=== PATIENT | female | born 1965 | race Caucasian/White ===

== ENCOUNTER 2016-12-02 13:17 | Emergency (ER) | payer SELFPAY ==
[2016-12-02] MEDS ORDERED: Sodium Chloride 0.9% 1,000 ML IV ONE (13:41)
--- NOTE | 2016-12-02 13:41 | C.PDOC ---
History Of Present Illness 51 year old patient, with a surgical history of appendectomy and cholecystectomy , presents to the ED complaining of vomiting and diarrhea since this morning. Patient also complains of associated body aches and periumbilical pain. She denies taking any medications for the pain. Patient denies shortness of breath, fever, or urinary symptoms. Time Seen by Provider: 12/02/16 13:23 Chief Complaint (Nursing): Abdominal Pain History Per: Patient, Family History/Exam Limitations: language barrier (translated by family) Onset/Duration Of Symptoms: Hrs (this morning) Current Symptoms Are (Timing): Still Present Context: Other Severity: Mild Pain Scale Rating Of: 3 Location Of Pain/Discomfort: Periumbilical Radiation Of Pain To:: None Quality Of Discomfort: "Pain" Associated Symptoms: Other (body aches) Exacerbating Factors: None Alleviating Factors: None Last Bowel Movement: Today Recent travel outside of the [place]: No Abnormal Vaginal Bleeding: No Past Medical History Reviewed: Historical Data, Nursing Documentation, Vital Signs Vital Signs: Last Vital Signs Temp 98 F 12/02/16 17:56 Pulse 85 12/02/16 17:56 Resp 18 12/02/16 17:56 BP 121/86 12/02/16 17:56 Pulse Ox 96 12/02/16 17:56 - Medical History PMH: Depression Surgical History: Appendectomy, Cholecystectomy Family History: States: Unknown Family Hx - Social History Hx Tobacco Use: No Hx Alcohol Use: No Hx Substance Use: No - Immunization History Hx Tetanus Toxoid Vaccination: No Hx Influenza Vaccination: No Hx Pneumococcal Vaccination: No Review Of Systems Except As Marked, All Systems Reviewed And Found Negative. Constitutional: Positive for: Other (body aches). Negative for: Fever Respiratory: Negative for: Shortness of Breath Gastrointestinal: Positive for: Vomiting, Abdominal Pain (periumbilical), Diarrhea Genitourinary: Negative for: Dysuria, Frequency, Incontinence Physical Exam - Physical Exam Appears: Non-toxic, No Acute Distress Skin: Warm, Dry Head: Atraumatic, Normacephalic Eye(s): bilateral: Normal Inspection, EOMI Nose: Normal Oral Mucosa: Moist Neck: Normal ROM, Supple Chest: Symmetrical Cardiovascular: Rhythm Regular Respiratory: Normal Breath Sounds, No Accessory Muscle Use, No Rales, No Rhonchi , No Wheezing Gastrointestinal/Abdominal: Soft, Tenderness (periumbilical), No Distention, No Guarding, No Rebound Back: No CVA Tenderness, No Vertebral Tenderness Extremity: Normal ROM Neurological/Psych: Oriented x3, Normal Speech, Normal Cognition Gait: Steady ED Course And Treatment - Laboratory Results Result Diagrams: 12/02/16 14:11 12/02/16 14:11 O2 Sat by Pulse Oximetry: 98 (RA) Pulse Ox Interpretation: Normal Progress Note: Plan: -Labs. -IV fluids, Toradol, Zofran. On re-evaluation pt notes pain improved. Tolerating PO. Afebrile. Case discussed with Dr Monroy who evaluated labs and radiology and agree dupon plan and treatment. Pt feels comfortable going home and will f/u outpt . Instructed to return to ER if symptoms persist or worsen. Disposition - Disposition Referrals: Anuradha Forrest APN [Advanced Practice Nurse] - Disposition: HOME/ ROUTINE Disposition Time: 17:44 Condition: STABLE Additional Instructions: Vaya a solis mdico o la clnica en 2-5 dee sin falta, para mas evaluacin. [place] los medicamentos ruiz indicado. Volver a la kaila de emergencia en cualquier momento si los sntomas persisten o empeoran. Prescriptions: Ciprofloxacin HCl [Cipro] 500 mg PO BID #14 tab Metronidazole [Flagyl] 500 mg PO BID #14 tab Ondansetron ODT [Zofran ODT] 1 odt PO BID PRN #6 odt PRN Reason: Nausea/Vomiting Instructions: Gastroenteritis (ED) Print Language: ARABIC - Clinical Impression Clinical Impression: Vomiting, Colitis, Diarrhea - PA / [employer] APPLICATION DEVELOPER / Resident Statement MD/DO has reviewed & agrees with the documentation as recorded. - Scribe Statement The provider has reviewed the documentation as recorded by the Scribe Priyanka Carmen All medical record entries made by the Scribe were at my direction and personally dictated by me. I have reviewed the chart and agree that the record accurately reflects my personal performance of the history, physical exam, medical decision making, and the department course for this patient. I have also personally directed, reviewed, and agree with the discharge instructions and disposition.
[2016-12-02] MEDS ORDERED: Sodium Chloride 0.9% 1,000 ML ONE (13:54)
[2016-12-02 14:18] LABS: BASO % 0.5 % (0.0-2.0); EOS % 0.1 % (0.0-4.0); HEMATOCRIT 44.1 % (34.0-47.0); MEAN CELL VOLUME 84.8 fL (81.0-99.0); MEAN CORPUSCULAR HGB CONC 34.2 g/dL (33.0-37.0); MEAN PLATELET VOLUME 8.1 fL (7.2-11.7); MONO # 0.5 K/uL (0.0-0.8); MONO % 5.6 % (0.0-10.0); RED CELL DISTRIBUTION WIDTH 13.2 % (11.5-14.5); WHITE BLOOD COUNT 9.8 K/uL (4.8-10.8)
[2016-12-02 14:26] LABS: RBC URINE 8 /hpf (0-3); URINE BILIRUBIN NEGATIVE (NEGATIVE); URINE BLOOD 1+ (NEGATIVE); URINE COLOR Yellow (YELLOW); URINE GLUCOSE (UA) NORMAL (Normal); URINE KETONE NEGATIVE (NEGATIVE); URINE LEUKOCYTE ESTERASE NEG Leu/uL (Negative); URINE PROTEIN NEGATIVE (NEGATIVE); URINE UROBILINOGEN NORMAL mg/dL (0.2-1.0); WBC URINE < 1 /hpf (0-5)
[2016-12-02 14:38] LABS: CHLORIDE 96 mmol/L (98-107); SODIUM 137 mmol/L (132-148)
[2016-12-02 14:40] LABS: GFR AFRICAN-AMERICAN > 60
[2016-12-02 14:41] LABS: ALB/GLOB RATIO 1.2 (1.0-2.1); ALKALINE PHOSPHATASE 107 U/L (38-126); ALT/SGPT 32 U/L (9-52); AST/SGOT 26 U/L (14-36); BILIRUBIN,TOTAL 0.7 mg/dL (0.2-1.3); BLOOD UREA NITROGEN 10 mg/dL (7-17); CALCIUM 9.3 mg/dl (8.6-10.4); CARBON DIOXIDE 25 mmol/L (22-30); GLUCOSE,RANDOM 93 mg/dL (65-105); TOTAL PROTEIN 8.5 g/dL (6.3-8.3)
[2016-12-02 15:43] VITALS: RESP 18
[2016-12-02] MEDS ORDERED: Iodixanol 320 MG/ML 100 ML BOTTLE IV ONE (16:16)
--- NOTE | 2016-12-02 17:07 | CT ---
PROCEDURE: CT Abdomen and Pelvis with intravenous contrast HISTORY: Abdominal pain COMPARISON: None. TECHNIQUE: Multiple contiguous axial images were performed through the abdomen and pelvis with the use of intravenous contrast. Subsequently, sagittal and coronal reformatted images were obtained. Radiation dose: Total exam DLP = eight hundred thirty-nine mGy-cm. This CT exam was performed using one or more of the following dose reduction techniques: Automated exposure control, adjustment of the mA and/or kV according to patient size, and/or use of iterative reconstruction technique. FINDINGS: LOWER THORAX: Atelectasis at the lung bases. LIVER: Mild fatty infiltration of the liver. GALLBLADDER AND BILE DUCTS: Prior cholecystectomy. PANCREAS: Heterogeneity at the head of the pancreas, nonspecific. SPLEEN: Preserved. Splenule. ADRENALS: Unremarkable. No mass. KIDNEYS AND URETERS: Few scattered sub centimeter hypodensities in both kidneys, too small to adequately characterize. Small cortical parenchymal defect at the upper pole of the right kidney, nonspecific. VASCULATURE: Unremarkable. No aortic aneurysm. BOWEL: Colonic diverticulosis. Underdistention and or mild thickening of the left hemicolon. Clinical correlation. APPENDIX: Not well identified. PERITONEUM: Unremarkable. No free fluid. No free air. LYMPH NODES: Unremarkable. No enlarged lymph nodes. BLADDER: Unremarkable. REPRODUCTIVE: Unremarkable. BONES: Degenerative changes in the spine. Grade 1 anterolisthesis of L4 on L5. OTHER FINDINGS: None. IMPRESSION: Colonic diverticulosis. Underdistention and or mild thickening of the left hemicolon. Clinical correlation. Additional findings as above.
[2016-12-02 17:59] VITALS: BP 121/86; PULSE 85; TEMP 98
[2016-12-02 18:43] VITALS: O2SAT 98
== END 2016-12-02 18:00 | disposition home or self-care (01) ==
LOC: C.ER 13:17
DX: K52.9 Noninfective gastroenteritis and colitis, unspecified (principal)
CPT/HCPCS: 74177; 80053; 81001; 83690; 84703; 85025; 87086; 87804; 96361; 96374; 96375; 99285; J1885; J2405; J7040; Q9967

== ENCOUNTER 2017-11-03 18:44 | Emergency (ER) | payer MEDICAID ==
[2017-11-03] MEDS ORDERED: Sodium Chloride 0.9% 1,000 ML IV ONE (19:40)
[2017-11-03 20:01] LABS: BASO % 0.4 % (0.0-2.0); EOS # 0.1 K/uL (0.0-0.7); EOS % 1.5 % (0.0-4.0); HEMOGLOBIN 14.1 g/dL (11.0-16.0); LYMPH % 34.3 % (20.0-40.0); MEAN CELL VOLUME 84.7 fL (81.0-99.0); MEAN CORPUSCULAR HEMOGLOBIN 29.7 pg (27.0-31.0); MEAN CORPUSCULAR HGB CONC 35.1 g/dL (33.0-37.0); MEAN PLATELET VOLUME 8.2 fL (7.2-11.7); MONO # 0.6 K/uL (0.0-0.8); MONO % 6.5 % (0.0-10.0); NEUT % 57.3 % (50.0-75.0); NRBC % 0.1 % (0.0-2.0); RBC 4.74 Mil/uL (3.80-5.20); RED CELL DISTRIBUTION WIDTH 13.2 % (11.5-14.5); WHITE BLOOD COUNT 8.7 K/uL (4.8-10.8)
[2017-11-03 20:08] LABS: HCG,QUALITATIVE URINE NEGATIVE (NEGATIVE)
[2017-11-03 20:09] LABS: SQUAMOUS EPITHIAL 1 /hpf (0-5); URINE BACTERIA RARE (<OCC); URINE BILIRUBIN NEGATIVE (NEGATIVE); URINE BLOOD NEGATIVE (NEGATIVE); URINE CLARITY Clear (Clear); URINE COLOR Colorless (YELLOW); URINE GLUCOSE (UA) NORMAL (Normal); URINE LEUKOCYTE ESTERASE NEG Leu/uL (Negative); URINE PROTEIN NEGATIVE (NEGATIVE); URINE UROBILINOGEN NORMAL mg/dL (0.2-1.0)
[2017-11-03 20:11] LABS: PROTHROMBIN TIME 11.1 SECONDS (9.7-12.2)
[2017-11-03 20:14] LABS: ALB/GLOB RATIO 1.1 (1.0-2.1); ALBUMIN 4.4 g/dL (3.5-5.0); ALT/SGPT 99 U/L (9-52); AST/SGOT 52 U/L (14-36); BLOOD UREA NITROGEN 20 mg/dL (7-17); CALCIUM 9.4 mg/dl (8.6-10.4); GFR AFRICAN-AMERICAN > 60; GFR NON-AFRICAN AMERICAN > 60; LIPASE 100 U/L (23-300)
--- NOTE | 2017-11-03 20:34 | C.PDOC ---
History Of Present Illness 52yo with history of diverticulosis, comes in with complaints of abdominal pain , worse in his left lower quadrant and suprapubic pain for the past 2 days. She also reports bright red blood per rectum but denies any hematemesis, fever, chills. She has no other medical complaints. Time Seen by Provider: 11/03/17 19:35 Chief Complaint (Nursing): Abdominal Pain History Per: Patient History/Exam Limitations: no limitations Onset/Duration Of Symptoms: Days (2) Current Symptoms Are (Timing): Still Present Location Of Pain/Discomfort: LLQ, Suprapubic Quality Of Discomfort: "Pain" Past Medical History Reviewed: Historical Data, Nursing Documentation, Vital Signs Vital Signs: Last Vital Signs Temp 98.3 F 11/03/17 18:54 Pulse 75 11/03/17 18:54 Resp 18 11/03/17 18:54 BP 105/67 11/03/17 18:54 Pulse Ox 98 11/03/17 22:47 - Medical History PMH: Depression, Gastritis, Hypercholesterolemia Surgical History: Appendectomy, Cholecystectomy Family History: States: Unknown Family Hx - Social History Hx Tobacco Use: No Hx Alcohol Use: No Hx Substance Use: No - Immunization History Hx Tetanus Toxoid Vaccination: No Hx Influenza Vaccination: No Hx Pneumococcal Vaccination: No Review Of Systems Except As Marked, All Systems Reviewed And Found Negative. Constitutional: Negative for: Fever, Chills Gastrointestinal: Positive for: Abdominal Pain, Hematochezia. Negative for: Hematemesis Physical Exam - Physical Exam Appears: Non-toxic Skin: Normal Color, Warm, Dry Head: Normacephalic Eye(s): bilateral: Normal Inspection Neck: Normal ROM, Supple Chest: Symmetrical Cardiovascular: Rhythm Regular Respiratory: Normal Breath Sounds Gastrointestinal/Abdominal: Soft, Tenderness (mild suprapubic and left lower quadrant tenderness.) Rectal: Heme Negative Extremity: Normal ROM Neurological/Psych: Oriented x3 ED Course And Treatment - Laboratory Results Result Diagrams: 11/03/17 19:55 11/03/17 19:55 O2 Sat by Pulse Oximetry: 98 (RA) Pulse Ox Interpretation: Normal Medical Decision Making Medical Decision Making: Impression: Abdominal pain r/o diverticultiis, gi bleed plan: -- CT Abdomen/Pelvis w/ IV Contrast -- Labs -- IV Fluids 1050: pt reassesed. states she had a episode of brbpr earlier today, but none right now, guiac neg. h/h stable. pain improved. pt is offered admission, however she declines and states she will return with worsening. IMPRESSION: - No evidence of significant acute process. No definite cause for pain identified Disposition - Disposition Referrals: Ramakrishna Allen MD [Staff Provider] - Disposition: HOME/ ROUTINE Disposition Time: 22:51 Condition: STABLE Additional Instructions: you are declining observation in the hospital. return to er with worsening symptoms or concerns. Instructions: Acute Abdomen (Belly Pain), Adult (DC), Gastrointestinal Bleeding , Diverticulosis Forms: [employer] (Bolivian) Print Language: WELSH - Clinical Impression Clinical Impression: Abdominal pain, GI bleed - Scribe Statement The provider has reviewed the documentation as recorded by the Scribe (Ama Polanco) Provider Attestation: All medical record entries made by the Scribe were at my direction and personally dictated by me. I have reviewed the chart and agree that the record accurately reflects my personal performance of the history, physical exam, medical decision making, and the department course for this patient. I have also personally directed, reviewed, and agree with the discharge instructions and disposition.
[2017-11-03] MEDS ORDERED: Iodixanol 320 MG/ML 100 ML BOTTLE IV ONE (20:57)
--- NOTE | 2017-11-03 22:46 | CT ---
EXAM: CT Abdomen and Pelvis With Intravenous Contrast EXAM DATE/TIME: 11/03/2017 7:40 PM CLINICAL HISTORY: 52 years old, female; Pain; Abdominal pain; Periumbilical; Additional info: Abd pain TECHNIQUE: Axial computed tomography images of the abdomen and pelvis with intravenous contrast. All CT scans at this facility use one or more dose reduction techniques, viz.: automated exposure control; ma/kV adjustment per patient size (including targeted exams where dose is matched to indication; i.e. head); or iterative reconstruction technique. Coronal and sagittal reformatted images were created and reviewed. CONTRAST: 100 mL of [id number] administered intravenously. COMPARISON: Prior abdominal ultrasound of 2015-12-01 FINDINGS: LIMITATIONS: Mild streak/motion artifact. LOWER THORAX: No infiltrate seen in the lung bases. ABDOMEN: LIVER: Fatty infiltration of the liver. Focal area of low density in the liver, abutting the falciform ligament, most compatible with focal fatty infiltration. GALLBLADDER AND BILE DUCTS: Cholecystectomy clips. PANCREAS: No CT evidence of acute pancreatitis. SPLEEN: No acute abnormality of the spleen identified. ADRENALS: No acute abnormality of the adrenal glands identified. KIDNEYS AND URETERS: Tiny, nonobstructing right renal stone. Low density lesions in the kidneys bilaterally, most likely representing cysts. The largest of these measures 11 mm. No acute abnormality of the kidneys identified. STOMACH AND BOWEL: Colonic diverticulosis, with no evidence of acute diverticulitis. Otherwise, no significant abnormality of the bowel is identified. No evidence of bowel obstruction. APPENDIX: Appendix is seen, and is within normal limits in appearance. PELVIS: BLADDER: No acute abnormality of the bladder identified. REPRODUCTIVE:No acute abnormality of the reproductive organs is seen. No acute abnormality of the uterus identified. No evidence of large adnexal masses. ABDOMEN and PELVIS: INTRAPERITONEAL SPACE: No evidence of free intraperitoneal air or fluid. BONES/JOINTS: No acute fractures or other acute bony abnormality noted. SOFT TISSUES: No acute abnormality of the visualized soft tissues is seen. VASCULATURE: No evidence of abdominal aortic aneurysm. No evidence of periaortic hemorrhage. LYMPH NODES: No evidence of diffuse lymphadenopathy. IMPRESSION: - No evidence of significant acute process. No definite cause for pain identified. - See above for remaining findings.
[2017-11-03 23:44] VITALS: BP 116/73; PULSE 69; RESP 20; TEMP 98.1; O2SAT 99
== END 2017-11-03 23:44 | disposition home or self-care (01) ==
LOC: C.ER 18:44
DX: K92.2 Gastrointestinal hemorrhage, unspecified (principal); R10.32 Left lower quadrant pain; E78.00 Pure hypercholesterolemia, unspecified
CPT/HCPCS: 74177; 80053; 81001; 83690; 84703; 85025; 85610; 85730; 86850; 86900; 99284; G0328; J7040; Q9967

== ENCOUNTER 2017-11-10 17:14 | Emergency (ER) | payer MEDICAID ==
[2017-11-10] MEDS ORDERED: Sodium Chloride 0.9% 1,000 ML IV ONE (17:48)
[2017-11-10] MEDS ORDERED: Aluminum Hydroxide/Magnesium Hydroxide Susp (30 mL) PO STA (17:48)
[2017-11-10] MEDS ORDERED: Belladonna-Phenobarbital PO STA (17:48)
--- NOTE | 2017-11-10 17:55 | C.PDOC ---
History Of Present Illness 52 yo female, hx of hplyori, presents with abdominal pain was seen in er last week, with gi bleed which resolved. states f/u up with gi, dx with hyployri, given triple meds. no fevers, no hememeisis, no bloody stool. Time Seen by Provider: 11/10/17 17:32 Chief Complaint (Nursing): GI Problem Past Medical History Reviewed: Historical Data, Nursing Documentation, Vital Signs Vital Signs: Last Vital Signs Temp 98.6 F 11/10/17 20:01 Pulse 69 11/10/17 20:01 Resp 18 11/10/17 20:01 BP 113/69 11/10/17 20:01 Pulse Ox 99 11/10/17 20:01 - Medical History PMH: Arthritis, Depression, Diverticulitis, Gastritis, Hypercholesterolemia Surgical History: Appendectomy, Cholecystectomy Family History: States: Unknown Family Hx - Social History Hx Tobacco Use: No Hx Alcohol Use: No Hx Substance Use: No - Immunization History Hx Tetanus Toxoid Vaccination: No Hx Influenza Vaccination: Yes Hx Pneumococcal Vaccination: No Review Of Systems Except As Marked, All Systems Reviewed And Found Negative. Gastrointestinal: Positive for: Nausea, Vomiting, Abdominal Pain Physical Exam - Physical Exam Appears: Well, No Acute Distress Skin: Normal Color, Warm, Dry Eye(s): bilateral: Normal Inspection, PERRL, EOMI Nose: Normal Throat: Normal Neck: Normal Cardiovascular: Rhythm Regular Respiratory: Normal Breath Sounds Gastrointestinal/Abdominal: Normal Exam, Soft, Tenderness (epgiastric), No Guarding, No Rebound Back: Normal Inspection Extremity: Normal ROM ED Course And Treatment - Laboratory Results Result Diagrams: 11/10/17 17:59 11/10/17 17:59 O2 Sat by Pulse Oximetry: 98 Disposition - Disposition Referrals: [facility] [Outside] [facility] [Outside] [facility]] Disposition: HOME/ ROUTINE Disposition Time: 08:00 Condition: STABLE Additional Instructions: return to er with worsening symptoms or concerns. Instructions: Acute Abdomen (Belly Pain) Forms: [employer] (Serbian) - Clinical Impression Clinical Impression: Abdominal pain
[2017-11-10] MEDS ORDERED: Belladonna-Phenobarbital ONE (18:00)
[2017-11-10] MEDS ORDERED: Aluminum Hydroxide/Magnesium Hydroxide Susp (30 mL) ONE (18:01)
[2017-11-10] MEDS ORDERED: Sodium Chloride 0.9% 1,000 ML ONE (18:01)
[2017-11-10 18:02] LABS: BASO % 0.4 % (0.0-2.0); EOS # 0.1 K/uL (0.0-0.7); EOS % 1.2 % (0.0-4.0); HEMOGLOBIN 13.2 g/dL (11.0-16.0); LYMPH # 2.1 K/uL (1.0-4.3); LYMPH % 25.5 % (20.0-40.0); MEAN CELL VOLUME 83.7 fL (81.0-99.0); MEAN CORPUSCULAR HEMOGLOBIN 29.1 pg (27.0-31.0); MEAN CORPUSCULAR HGB CONC 34.8 g/dL (33.0-37.0); MEAN PLATELET VOLUME 7.7 fL (7.2-11.7); MONO # 0.5 K/uL (0.0-0.8); MONO % 6.4 % (0.0-10.0); NEUT # 5.5 K/uL (1.8-7.0); NEUT % 66.5 % (50.0-75.0); NRBC % 0.1 % (0.0-2.0); RBC 4.52 Mil/uL (3.80-5.20); RED CELL DISTRIBUTION WIDTH 13.1 % (11.5-14.5); WHITE BLOOD COUNT 8.2 K/uL (4.8-10.8)
[2017-11-10 18:10] LABS: PROTHROMBIN TIME 10.7 SECONDS (9.7-12.2)
[2017-11-10 18:15] LABS: ALB/GLOB RATIO 1.1 (1.0-2.1); ALBUMIN 3.9 g/dL (3.5-5.0); ALT/SGPT 56 U/L (9-52); AST/SGOT 24 U/L (14-36); BLOOD UREA NITROGEN 16 mg/dL (7-17); CALCIUM 8.6 mg/dl (8.6-10.4); GFR AFRICAN-AMERICAN > 60; GFR NON-AFRICAN AMERICAN > 60; LIPASE 137 U/L (23-300)
[2017-11-10 19:25] LABS: SQUAMOUS EPITHIAL < 1 /hpf (0-5); URINE BILIRUBIN NEGATIVE (NEGATIVE); URINE BLOOD NEGATIVE (NEGATIVE); URINE CLARITY Clear (Clear); URINE COLOR Colorless (YELLOW); URINE GLUCOSE (UA) NORMAL (Normal); URINE LEUKOCYTE ESTERASE NEG Leu/uL (Negative); URINE PROTEIN NEGATIVE (NEGATIVE); URINE UROBILINOGEN NORMAL mg/dL (0.2-1.0)
[2017-11-10 19:26] LABS: HCG,QUALITATIVE URINE NEGATIVE (NEGATIVE)
[2017-11-10 20:01] VITALS: BP 113/69; PULSE 69; RESP 18; TEMP 98.6
[2017-11-10 22:57] VITALS: O2SAT 98
== END 2017-11-10 20:07 | disposition home or self-care (01) ==
LOC: C.ER 17:14
DX: R10.9 Unspecified abdominal pain (principal); E78.00 Pure hypercholesterolemia, unspecified; K57.92 Diverticulitis of intestine, part unspecified, without perforation or abscess without bleeding
CPT/HCPCS: 80053; 81001; 83690; 84703; 85025; 85610; 85730; 96361; 96374; 99285; J2405; J7040

== ENCOUNTER 2018-09-15 05:56 | Day surgery (SDC) | payer MEDICARE, MEDICAID ==
[2018-09-04 08:08] VITALS: BMI 28.3
[2018-09-15] MEDS ORDERED: Lidocaine 2% MPF (5 ml) Inj ONE (07:35)
[2018-09-15] MEDS ORDERED: Bupivacaine HCl 0.5% PF (10 ml) Inj ONE (07:35)
[2018-09-15] MEDS ORDERED: ceFAZolin 1 gm in NS 2 GM/200 ML BAG IVPB ONE (07:36)
[2018-09-15] MEDS ORDERED: Midazolam 2 MG/2 ML VIAL ONE (07:49)
[2018-09-15] MEDS ORDERED: Propofol 10 mg/ml Inj (20 ML) ONE (07:49)
[2018-09-15] MEDS ORDERED: Morphine 4 MG/ML VIAL ONE (09:27)
[2018-09-15] MEDS ORDERED: Bupivacaine Liposomal Inj 20 ml INFIL ONE (09:36)
[2018-09-15] MEDS ORDERED: Bupivacaine 0.25% 20 ML INJ IJ ONE (09:42)
[2018-09-15] MEDS ORDERED: Sodium Chloride 0.9% 20 ML IV ONE (09:42)
[2018-09-15] MEDS ORDERED: Oxycodone/Acetaminophen 5/325 mg Tab PO PRN (10:14)
[2018-09-15] MEDS ORDERED: HYDROmorphone 0.5 mg/0.5 ml ISec IVP PRN (10:14)
--- NOTE | 2018-09-15 10:14 | PCM.SURG1 ---
Surgeon's Initial Post Op Note - Surgeon's Notes Surgeon: Jenna Fence Erector: bernie pgy-3, talia pgy-2, jefferson pgy-2 Type of Anesthesia: General LMA, Local Anesthesia Administered By: curt Pre-Operative Diagnosis: left foot posterior tibial tendon dysfunction, spring ligament injury Operative Findings: see dictation. 3-0 monocryl, 3-0, 4-0 vicryl, 4-0 prolene. arthrex biotenodesis screw, internal brace Post-Operative Diagnosis: same Operation Performed: left foot posterior tibial tendon repair with spring ligament repair and FDL transfer Specimen/Specimens Removed: soft tissue Estimated Blood Loss: EBL {In ML}: 5 Blood Products Given: N/A Drains Used: No Drains Post-Op Condition: Good Date of Surgery/Procedure: 09/15/18 Time of Surgery/Procedure: 10:14
[2018-09-15 10:29] VITALS: O2SAT 100
[2018-09-15 11:59] VITALS: RESP 18
[2018-09-15 14:34] VITALS: BP 127/86; PULSE 62; TEMP 97
--- NOTE | 2018-09-15 15:20 | RAD ---
Date of service: 09/15/2018 PROCEDURE: Left Foot Radiographs. HISTORY: s/pleft footsurgery COMPARISON: None. FINDINGS: BONES: Hallux valgus deformity. Diffuse hammertoe deformities. Achilles enthesophyte. Inferior plantar calcaneal spur. JOINTS: Normal. SOFT TISSUES: Soft tissue swelling and postoperative changes OTHER FINDINGS: None. IMPRESSION: Postoperative changes. No acute fracture.
--- NOTE | 2018-09-16 10:31 | OP ---
PROCEDURE DATE: 09/15/2018 SURGEON: Tarik Peña DPM ASSISTANTS: Mariah Henderson, PGY-3; Dr. Carmen, PGY-2; Dr. De La Cruz, PGY-2 BENCH HAND MACHINE: Bill Shoemaker DO ANESTHESIA: General LMA with local. PREOPERATIVE DIAGNOSIS: Left foot posterior tibial tendon dysfunction. POSTOPERATIVE DIAGNOSIS: Left foot posterior tibial tendon dysfunction. PROCEDURES PERFORMED: Left foot spring ligament augmentation with flexor digitorum longus transfer using a bone anchor fixation and Arthrex InternalBrace. INDICATIONS: The patient is a 53-year-old female with the above-mentioned diagnosis. The patient has exhausted multiple forms of conservative treatments at this time and now requires surgical intervention. The patient signed the consent after careful explanation of risks, benefits, complications, and alternatives for the surgical procedure. No guarantees were given nor implied. PREPARATION: The patient was brought into the operating room and placed on the operating room table in a supine position. A time-out was performed for identification of the correct patient and procedure. Once general anesthesia was achieved, the left foot was then prepped and draped in a normal sterile manner. The patient's left foot was then elevated, and pneumatic thigh tourniquet was inflated to 350 mmHg and the procedure began. DESCRIPTION OF PROCEDURE: Approximately 5-cm linear longitudinal incision was made from the distal aspect of the medial malleolus to the navicular tuberosity of the left foot. The incision was deepened through subcutaneous tissue with care being taken to identify and retract all vital neurovascular structures. All bleeders were cauterized and ligated as necessary. Next, utilizing dissecting scissors, the deep fascia was incised to the length of posterior tibialis tendon into the operative field. Using a #15 blade, the tendon sheath of the posterior tibialis tendon was incised revealing inflammatory tissue, which was removed and passed from the operative field. The flexor retinaculum visualized and the navicular tuberosity was identified using intraoperative fluoroscopy. Next, the periosteal incision was made to the flexor retinaculum just beneath the posterior tibial tendon and was reflected medially and laterally thus exposing the cortex. Over drilling was performed using a 2.7 drill from the Arthrex InternalBrace at an angle 15 degrees finally and posteriorly to prevent violating the subtalar joint. A drill hole was creased and a 3.5 SwiveLock lug loader with FiberTape was inserted. Next, the flexor digitorum longus tendon was identified and incised distally. The tendon sheath was identified and incised and then the FDL (flexor digitorum longus) tendon was identified. The tendon was then followed distally and transected to allow for transfer. Upon transecting the FDL tendon, 25% of the flexor hallucis longus tendon was lying plantar and was cut and repaired by 3-0 Vicryl and 3-0 Monocryl. Next, adequate range of motion was assessed at this time and noted to be excellent. Next, the FDL tendon was ruptured using FiberWire. Then, a periosteal incision was made at the navicular tuberosity and reflected medially and laterally, thus exposing the cortex for drilling. A 3.5 drill bit was placed through and through into the navicula and then reamed with a 5.0 ream. One limb of the FiberTape was placed in dorsal to the plantar and the other limb of the FiberTape along with a flexor digitorum longus tendon and was placed in plantar to dorsal, the navicular is providing equal strength. Both limbs of the FiberTape and FDL tendon were then held with tension. A 5.0 SwiveLock anchor was placed in dorsal to the plantar aspect of the navicula anchoring with an interference screw. The remaining FiberWire was then cut and removed from the field. The incision sites were then copiously irrigated with sterile normal saline. A 5 mL of platelet-rich plasma was then injected into the posterior tibial tendon. The capsular tissue was then reapproximated with a 3-0 Vicryl. The subcutaneous tissue was reapproximated with 4-0 Vicryl, and the skin was reapproximated with a 4-0 Prolene. Postoperative injection of 10 mL of Exparel and 10 mL of 0.5% Marcaine plain was given in the local block-type fashion to the left foot. The postoperative dressing included Xeroform, 4x4 gauze, Bruno, and a posterior splint was applied to the left lower extremity. POSTOPERATIVE CONDITION: The patient tolerated the anesthesia and the procedure well and was escorted to the recovery room with vital signs stable and neurovascular status intact to the left foot. The patient will follow up with Dr. Peña in his office as an outpatient basis. Mariah Henderson DPM Tarik Peña DPM [facility] # [id number]
== END 2018-09-15 14:34 | disposition home or self-care (01) ==
LOC: C.SDS 05:56
PROVIDERS: ATTEND Podiatrist Foot & Ankle Surgery
DX: M76.822 Posterior tibial tendinitis, left leg (principal); S86.10 Unspecified injury of other muscle(s) and tendon(s) of posterior muscle group at lower leg level; E78.5 Hyperlipidemia, unspecified; M19.90 Unspecified osteoarthritis, unspecified site
CPT/HCPCS: 27695; 73620; 97116; 97161; C1713; G8978; G8979; G8980; J0690; J1170; J1885; J2250; J2270; J2405; J2704; J3010